=== PATIENT | female | born 1935 | race Caucasian/White ===

== ENCOUNTER → 2017-08-02 | Outpatient (REF) | payer MEDICARE | LOC: M LAB REF 15:24 | DX: E04.2 Nontoxic multinodular goiter (principal) | CPT/HCPCS: 88173 ==

== ENCOUNTER → 2019-12-20 | Outpatient (REF) | payer MEDICARE, OTHER | LOC: M LAB REF 12:57 | PROVIDERS: ATTEND Internal Medicine Endocrinology, Diabetes & Metabolism | DX: E04.2 Nontoxic multinodular goiter (principal) ==

== ENCOUNTER → 2021-01-30 | Outpatient (REF) | payer MEDICARE, OTHER | LOC: M LAB REF 12:50 | PROVIDERS: ATTEND Internal Medicine Nephrology | DX: N18.31 Chronic kidney disease, stage 3a (principal); E83.42 Hypomagnesemia ==

== ENCOUNTER → 2021-08-12 | Outpatient (REF) | payer MEDICARE, OTHER | LOC: M LAB REF 16:44 | PROVIDERS: ATTEND Internal Medicine Nephrology | DX: N18.31 Chronic kidney disease, stage 3a (principal); R82.81 Pyuria ==